=== PATIENT | male | born 1955 | race Caucasian/White ===

== ENCOUNTER 2019-07-20 10:00 | Emergency (ER) | payer OTHER ==
[2019-07-20 10:07] VITALS: BMI 27.9
--- NOTE | 2019-07-20 10:19 | PDOC ---
History of Present Illness - General Chief Complaint: Injury Stated Complaint: FALL/LT FOOT PAIN Time Seen by Provider: 07/20/19 10:14 - History of Present Illness Initial Comments: 07/20/19 10:23 The patient is a 63 year old male who denies any significant PMH who presents for evaluation of left foot pain. The patient reports that he was descending a vertical ladder when his right knee gave out and he slid down the ladder 4-5 feet and landed on a brick with his left foot. He reports that he was standing after the fall and denies any head trauma, or back pain. He reports difficulty ambulating secondary to pain to his left mid-foot prompting his presentation to the ED for further evaluation. He otherwise denies headache, SOB, chest pain, abdominal pain, nausea, vomiting, numbness, tingling, or weakness. Past History - Past Medical History Allergies/Adverse Reactions: Allergies Allergy/AdvReac Type Severity Reaction Status Date / Time No Known Allergies Allergy Verified 07/20/19 10:07 COPD: No - Psycho Social/Smoking Cessation Hx Smoking History: Unknown if ever smoked Hx Alcohol Use: No Drug/Substance Use Hx: No Review of Systems - Review of Systems Comments:: 07/20/19 10:31 Constitutional: No fevers, chills, fatigue, malaise HEENT: No Rhinorrhea, nasal congestion, visual changes Cardiovascular: No chest pain, syncope, palpitations, lightheadedness Respiratory: No Cough, SOB, Hemoptysis, Gastrointestinal: No Abdominal pain, Nausea, Vomiting, Constipation, Diarrhea, Melena Genitourinary: No Dysuria, Frequency, Urgency, Hesitancy, Hematuria, Flank pain Musculoskeletal: Left foot pain. No Myalgia, arthralgia Skin: No rashes, itching, bruising, pallor Neurologic: No Headache, Dizziness, Numbness, Weakness, or Tingling Psychiatric: No Hallucinations. No SI or HI *Physical Exam - Vital Signs Last Vital Signs Temp Pulse Resp BP Pulse Ox 98.0 F 98 H 16 115/67 98 07/20/19 10:02 07/20/19 10:02 07/20/19 10:02 07/20/19 10:02 07/20/19 10:02 - Physical Exam Comments: 07/20/19 10:31 General Appearance: Nourished. No Apparent Distress HEENT: EOMI, PATTIE. No Pharyngeal Erythema, Tonsillar Exudate, Tonsillar Erythema Neck: No Cervical Lymphadenopathy Respiratory/Chest: Lungs Clear, Normal Breath Sounds. No Crackles, Rales, Rhonchi, Wheezing Cardiovascular: Regular Rhythm, Regular Rate. No Murmur, Gallops, Rubs Gastrointestinal/Abdominal: Normal Bowel Sounds, Soft. No Guarding, Rebound, Tenderness Musculoskeletal: No CVA Tenderness or mid-line spinal tenderness to palpation. Extremity: Left Mid-foot tenderness to palpation. 2+ dp pulses bilaterally. 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 Medical Decision Making - Medical Decision Making 07/20/19 10:37 The patient is a 63 year old male who denies any significant PMH who presents for evaluation of left foot pain. Differential includes but is not limited to: lis-franc, fracture, dislocation, contusion. Given the patient's history and physical exam, we will obtain plain films to evaluate further. We will treat with ibuprofen and continue to monitor and reassess while here in the ED. 07/20/19 11:26 Plain films are do not demonstrate any acute process as read by our radiologist. We are comfortable discharging the patient home in stable condition. Patient and family made aware of impression and plan, return precautions discussed including but not limited to worsening pain or symptoms, fevers, or signs of infection, chest pain, respiratory distress, inability to tolerate oral intake, dehydration, syncope, or neurologic changes. The patient is to follow up with PMD as recommended within 1 week, follow up information provided and the patient will call for an appointment. The patient is to take medications as instructed for duration of time and continue with supportive care , avoid triggers and precipitants. Patient is safe for outpatient follow-up. Discharge - Discharge Information Problems reviewed: Yes Clinical Impression/Diagnosis: Foot pain, left Condition: Stable Disposition: HOME - Follow up/Referral Referrals: Rosendo Olguin MD [Staff Physician] - - Patient Discharge Instructions Patient Printed Discharge Instructions: DI for Foot Pain Additional Instructions: 1) Please follow-up with your primary care doctor in the next 1 week. Please call tomorrow to schedule a follow up appointment. If you cannot follow up with your doctor within 1 week please return to the Emergency Department for any urgent issues. 2) Please bring the results with you and review them with your primary care doctor. Your imaging results were normal here in the ER. If your symptoms do not improve, please schedule an appointment with our treasury specialist for further management. 3) If you have any worsening of symptoms or any other concerns, please return to the ER immediately. Return if worsening symptoms including fevers, headache, vomiting, visual or hearing disturbances, abdominal pain, chest pain, shortness of breath, syncope, dehydration, inability to take things by mouth/vomiting, altered mental status, or worsening concerning symptoms. - Post Discharge Activity Work/Back to School Note: Back to Work
[2019-07-20] MEDS ORDERED: IBUPROFEN 600 MG TABLET (FP) PO ONE ×2 (10:22→10:56)
[2019-07-20] MEDS ORDERED: ACETAMINOPHEN 500 MG TABLET (FP) PO ONE (11:31)
[2019-07-20] MEDS ORDERED: traMADol HCL 50 MG TABLET PO ONE (11:31)
--- NOTE | 2019-07-20 11:36 | PDOC ---
Attending Attestation - Resident Resident Name: Sandro Middleton - ED Attending Attestation I have performed the following: I have examined & evaluated the patient, The case was reviewed & discussed with the resident, I agree w/resident's findings & plan, Exceptions are as noted - HPI HPI: 07/20/19 11:32 63 years old with left foot injury. Mechanical fall slid down the ladder landed on a brick with his left foot complaining of pain to the dorsal aspect of the right great toe. Pain is moderate to severe 8 out of 10 worse with ambulating no significant alleviating factors - Physicial Exam PE: 07/20/19 11:33 Vitals: Triage Vital signs reviewed General Appearance: No acute distress, well nourished well developed, Head: Atraumatic, Extremities: Full range of motion to all extremities, tenderness to palpation at the base of the left great toe no deformity neurovascular intact distally Skin: Warm and dry, no rashes or lesions, no rash, no petechiae Neuro: AOX3; cranial Nerves 2-12 grossly intact, strength intact to all extremities, sensation intact to all extremities, Psych: Normal mood, normal affect - Medical Decision Making 07/20/19 11:35 Well-appearing no apparent distress with great toe injury. X-rays negative for acute fracture dislocation Patient placed in a hard sole shoe given crutches orthopedic follow-up instructions for rest ice and note for work We will follow-up with orthopedics if no improvement within 1 week Findings, the need for follow-up and strict return instructions discussed with patient.
[2019-07-20 12:04] VITALS: BP 114/70; PULSE 83; TEMP 98
== END 2019-07-20 11:55 | disposition home or self-care (01) ==
LOC: JER 10:00
DX: S99.822A Other specified injuries of left foot, initial encounter (principal); M79.675 Pain in left toe(s); W11.XXXA Fall on and from ladder, initial encounter; Y93.89 Activity, other specified; Y92.69 Other specified industrial and construction area as the place of occurrence of the external cause; Y99.0 Civilian activity done for income or pay
CPT/HCPCS: 73630-TC-LT; 99282-25